=== PATIENT | male | born 1960 | race Caucasian/White ===

== ENCOUNTER 2016-07-13 15:10 | Emergency (ER) | payer OTHER ==
[2016-07-13 15:20] VITALS: BP 151/99; TEMP 98; BMI 29.0
--- NOTE | 2016-07-13 16:21 | PDOC ---
History of Present Illness - General Chief Complaint: Redness To Affected Area Stated Complaint: RASH ON LT FEET Time Seen by Provider: 07/13/16 16:17 History Source: Patient Exam Limitations: No Limitations - History of Present Illness Initial Comments: CHIEF COMPLAINT: 55 y/o afebrile male with no significant PMH here for a second opinion about his left leg rash. HISTORY OF PRESENT ILLNESS: The patient states he woke up 4 days ago with a red , hot rash on his left lower leg. He saw his doctor, who thought he may have gotten bitten by something, and was prescribed keflex. The patient states the leg is much better than it was (he has another 5 days of keflex) but he wants to make sure he's ok because his leg is still slightly red and swollen. He denies f/c, n/v/d, numbness/tingling in left LE, calf pain. Vital signs on arrival are notable for pulse of 102 REVIEW OF SYSTEMS: GENERAL/CONSTITUTIONAL: No fever/chills. No weakness. No weight change. HEAD, EYES, EARS, NOSE AND THROAT: No change in vision. No ear pain or discharge. No sore throat. MUSCULOSKELETAL: +left leg redness and swelling. No neck or back pain. SKIN: No rash or easy bruising. NEUROLOGIC: No headache, vertigo, loss of consciousness, or loss of sensation. PHYSICAL EXAM: VITAL_SIGNS: within normal limits GENERAL_APPEARANCE: alert, cooperative, no obvious discomfort. The patient is ambulatory with normal gait. MENTAL_STATUS: speech clear, oriented X 3, responds appropriately to questions. NEURO: motor intact and sensory intact in injured extremity. EXTREMITIES: good pulse in injured extremity. Anterior left LE with 5cm long x 2cm tall area of erythema that blanches. Left ankle with mild edema. No streaking. No warmth. No TTP of affected areas. Negative Gigi's sign. No left calf pain. Full ROM of left knee and ankle. As compared to pictures from 4 days ago the leg appears much improved. SKIN: warm, dry, good color. Past History - Past Medical History Allergies/Adverse Reactions: Allergies Allergy/AdvReac Type Severity Reaction Status Date / Time No Known Allergies Allergy Verified 07/13/16 15:20 Home Medications: Ambulatory Orders Cephalexin [Keflex] 500 mg PO TID 07/13/16 Sulfamethoxazole/Trimethoprim [Bactrim Ds -] 1 tab PO BID #14 tablet 07/13/16 Hypercholesterolemia: Yes - Psycho/Social/Smoking Cessation Hx Anxiety: No Suicidal Ideation: No Smoking Status: No Smoking History: Never smoked Number of Cigarettes Smoked Daily: 0 Hx Alcohol Use: No Drug/Substance Use Hx: No Substance Use Type: None *Physical Exam - Vital Signs Last Vital Signs Temp Pulse Resp BP Pulse Ox 98.0 F 102 H 20 151/99 97 07/13/16 15:17 07/13/16 15:17 07/13/16 15:17 07/13/16 15:17 07/13/16 15:17 Medical Decision Making - Medical Decision Making A/P: 55 y/o afebrile male with cellulitis to left LE. The leg looks much improved from pictures taken 4 days ago at onset of symptoms. Suggested he continue taking keflex as prescribed. Will send out rx for bactrim. He is no longer tachycardic. Instructed him to take entire course. Suggested he elevate and ice his leg at the end of each day as he works 2 jobs and is constantly on his feet. Suggested he f/u with Dr. Catalan this week and return to the ER with any worsening or concerning symptoms. The patient verbalizes understanding of all instructions, has no further questions and is awaiting discharge. *DC/Admit/Observation/Transfer Diagnosis at time of Disposition: Cellulitis Qualifiers: Site of cellulitis: extremity Site of cellulitis of extremity: lower extremity Laterality: left Qualified Code(s): L03.116 - Cellulitis of left lower limb - Discharge Dispostion Disposition: HOME Condition at time of disposition: Good - Prescriptions Prescriptions: Sulfamethoxazole/Trimethoprim [Bactrim Ds -] 1 tab PO BID #14 tablet - Referrals Referrals: Lloyd Catalan MD [Primary Care Provider] - - Patient Instructions Printed Discharge Instructions: DI for Cellulitis -- Adult Additional Instructions: Discharge Instructions: -Continue taking your medications as prescribed by your doctor -Take the new medication as prescribed and complete entire course -Ice and elevate your leg as much as you can to help with swelling -Follow up with Dr. Catalan this week -Return to the ER with any worsening or concerning symptoms. Print Language: POLISH
[2016-07-13 16:46] VITALS: PULSE 88
== END 2016-07-13 16:52 | disposition home or self-care (01) ==
LOC: JERFT 15:10
DX: L03.116 Cellulitis of left lower limb (principal)
CPT/HCPCS: 99281-25